=== PATIENT | male | born 1980 | race Caucasian/White ===

== ENCOUNTER 2024-10-31 07:38 | Emergency (ER) | payer MEDICAID ==
[~2024-10-31] VITALS: Ht 175.3 cm; Wt 77.0 kg
[2024-10-31 07:40] VITALS: BP 131/84; PULSE 126; RESP 22; TEMP 36.8; O2SAT 100
== END 2024-10-31 08:01 | disposition left against medical advice (07) ==
LOC: ER 07:38
DX: M25.551 Pain in right hip (principal); Z53.21 Procedure and treatment not carried out due to patient leaving prior to being seen by health care provider

== ENCOUNTER 2024-10-31 08:50 | Emergency (ER) | payer MEDICAID ==
[~2024-10-31] VITALS: Ht 177.8 cm; Wt 86.2 kg
[2024-10-31 08:57] VITALS: O2SAT 97
[2024-10-31] MEDS: DIPHENHYDRAMINE 50MG/ML VIAL IM PRN (09:27)
[2024-10-31] MEDS: LORAZEPAM 2MG/ML INJ IM ONE (09:27)
[2024-10-31] MEDS: HALOPERIDOL LACTATE 5MG/ML VIAL IM ONE (09:27)
[2024-10-31 09:39] LABS: BASOPHILS % 0.3 % (0.0-2.0); EOSINOPHILS % 0.2 % (0.0-5.0); HEMATOCRIT. 35.5 % (42.0-52.0); HEMOGLOBIN. 12.1 g/dL (14.0-18.0); LYMPHOCYTES % 10.4 % (20.0-50.0); MEAN CORPUSCULAR HEMOGLOBIN 30.5 pg (28.0-32.0); MEAN CORPUSCULAR HGB CONC 34.2 g/dL (31.0-37.0); MEAN CORPUSCULAR VOLUME 89.2 fL (80.0-94.0); MEAN PLATELET VOLUME 9.2 fl (7.4-10.4); MONOCYTES % 8.9 % (2.0-8.0); NEUTROPHILS % 80.2 % (40.0-76.0); PLATELET 249 x1000/uL (130-400); RED BLOOD CELL COUNT 3.98 mill/uL (4.7-6.1); WHITE BLOOD COUNT 10.4 x1000/uL (4.5-11.0)
[2024-10-31 09:43] LABS: CHLORIDE 104 mEq/L (98-107); POTASSIUM 3.4 mEq/L (3.5-5.1); SODIUM 142 mEq/L (136-145)
[2024-10-31 09:44] LABS: CARBON DIOXIDE 24 mEq/L (21-32)
[2024-10-31 09:45] LABS: CALCIUM 9.6 mg/dL (8.7-10.4)
[2024-10-31 09:49] LABS: GLUCOSE 96 mg/dL (70-105); TROPONIN I HIGH SENSITIVITY 16 ng/L (3.0-53); UREA NITROGEN BLOOD 21 mg/dL (9-23)
[2024-10-31 09:51] LABS: ACETAMINOPHEN < 2 ug/mL (10-30)
[2024-10-31 10:12] LABS: ETHANOL BLOOD < 10 mg/dL (<10)
[2024-10-31 14:15] VITALS: BP 100/50; PULSE 98; RESP 21; TEMP 36.9; O2SAT 97
== END 2024-10-31 14:29 | disposition home or self-care (01) ==
LOC: ER 08:50
DX: F15.90 Other stimulant use, unspecified, uncomplicated (principal); Z79.899 Other long term (current) drug therapy
CPT/HCPCS: 80048; 80307; 80329; 80320; 85025; 84484; 36415; 71045; 96372; 99284; J1200; J1630; J2060; Z7610 ×3; G0480